=== PATIENT | female | born 2000 | race Caucasian/White ===

== ENCOUNTER 2021-04-20 15:40 | Emergency (ER) | payer OTHER ==
[2021-04-20 15:53] VITALS: BP 129/84; PULSE 115; TEMP 97.8; BMI 23.8
[2021-04-20] MEDS ORDERED: ACETAMINOPHEN 500 MG TABLET (FP) PO ONE (17:13)
[2021-04-20] MEDS ORDERED: ACETAMINOPHEN 500 MG TABLET (FP) ONE (17:25)
[2021-04-20 17:56] LABS: EPI CELLS 15 /uL (0-25.1); HCG,QUALITATIVE URINE Negative; HYALINE CASTS 1 /uL (0-3.1); URINE APPEARANCE CLOUDY; URINE BACTERIA 280 /uL (0-1359); URINE BILIRUBIN NEGATIVE (NEGATIVE); URINE COLOR YELLOW; URINE GLUCOSE (UA) NEGATIVE (NEGATIVE); URINE KETONE NEGATIVE (NEGATIVE); URINE LEUK ESTERASE NEGATIVE (NEGATIVE); URINE NITRITE NEGATIVE (NEGATIVE); URINE PROTEIN 1+ (NEGATIVE); URINE RBC 30 /uL (0-23.9); URINE WBC 5 /uL (0-25.8)
== END 2021-04-20 18:07 | disposition home or self-care (01) ==
LOC: JER 15:40 → JERFT 15:40
DX: S29.011A Strain of muscle and tendon of front wall of thorax, initial encounter (principal); Y99.9 Unspecified external cause status
CPT/HCPCS: 71046-TC-FY; 71101-TC-LT-FY; 81003; 84703; 87086; 99284-25

== ENCOUNTER 2022-05-14 08:50 | Inpatient (IN) | payer OTHER ==
[2022-05-14 10:20] LABS: BASO % 0.3 % (0-2.0); EOS % 2.5 % (0-4.5); HEMATOCRIT 35.5 % (32.4-45.2); HEMOGLOBIN 11.8 GM/dL (10.7-15.3); LYMPH % 14.5 % (8-40); MCH 28.5 pg (25.7-33.7); MCHC 33.3 g/dl (32.0-36.0); MEAN CELL VOLUME 85.6 fl (80-96); MEAN PLT VOLUME 9.2 fl (7.5-11.1); MONO % 5.7 % (3.8-10.2); PLATELET COUNT 192 10^3/uL (134-434); RBC 4.15 M/mm3 (3.60-5.2); RDW 14.7 % (11.6-15.6); WHITE BLOOD COUNT 9.6 K/mm3 (4.0-10.0)
[2022-05-14 10:34] LABS: CALCIUM 8.9 mg/dL (8.5-10.1)
[2022-05-14 10:35] LABS: BLOOD UREA NITROGEN 8.3 mg/dL (7-18)
[2022-05-14 10:38] LABS: CREATININE 0.7 mg/dL (0.55-1.3)
[2022-05-14 10:50] VITALS: BMI 32.8
[2022-05-14] MEDS: ELECTROLYTE-148 SOLN 1,000 ML IV SCH ×2 (11:00→17:04)
[2022-05-14 12:18] LABS: INR 0.97 (0.83-1.09); PROTHROMBIN TIME (PATIENT) 11.1 SEC (9.7-13.0)
[2022-05-14] MEDS ORDERED: PROMETHAZINE HCL 25 MG/1 ML VIAL IVPUSH ONE (15:35)
[2022-05-14] MEDS ORDERED: BUTORPHANOL TARTRATE 2 MG/ML VIAL IVPUSH ONE (15:35)
[2022-05-14] MEDS ORDERED: OXYTOCIN 30 UNITS in 0.9% NS 30 UNIT/500 ML INFUS.BAG IVPB ONE (15:37)
[2022-05-14] MEDS ORDERED: OXYTOCIN 30 UNITS in 0.9% NS 30 UNIT/500 ML INFUS.BAG IVPB SCH (15:45)
[2022-05-14] MEDS ORDERED: BUTORPHANOL TARTRATE 2 MG/ML VIAL ONE (16:35)
[2022-05-14] MEDS ORDERED: PROMETHAZINE HCL 25 MG/1 ML VIAL ONE (16:35)
[2022-05-14] MEDS ORDERED: FENTANYL/BUPIVACAINE/NS/PF - PCEA - 50 ML DISP.SYRIN EP ONE (19:13)
[2022-05-14] MEDS ORDERED: FENTANYL CITRATE/PF 50 MCG/ML VIAL ONE (19:23)
[2022-05-14] MEDS ORDERED: NALOXONE HCL 0.4 MG/ML VIAL IVPUSH PRN (19:47)
[2022-05-14] MEDS ORDERED: FENTANYL/BUPIVACAINE/NS/PF - PCEA - 50 ML DISP.SYRIN EP SCH (20:00)
[2022-05-14] MEDS ORDERED: ELECTROLYTE-148 SOLN 1,000 ML IV SCH (20:00)
[2022-05-14] MEDS ORDERED: OXYTOCIN 20 UNITS in 0.9% NS 20 UNIT/1,000 ML INFUS.BAG IV ONE (21:29)
[2022-05-14] MEDS ORDERED: LIDOCAINE HCL 1% PRESERVATIVE FREE - 30ML VIAL ONE (21:29)
[2022-05-14] MEDS ORDERED: BISACODYL 10 MG SUPP.RECT RC PRN (22:47)
[2022-05-14] MEDS ORDERED: WITCH HAZEL 50% (TUCKS) 40 PAD/JAR PAD TP PRN (22:47)
[2022-05-14] MEDS ORDERED: BENZOCAINE 20% 57 GM BOTTLE TP PRN (22:47)
[2022-05-14] MEDS ORDERED: ACETAMINOPHEN 325 MG TABLET (FP) PO PRN (22:47)
[2022-05-14] MEDS ORDERED: METHYLERGONOVINE MALEATE 0.2 MG/1 ML AMP IM PRN (22:47)
[2022-05-14] MEDS ORDERED: BENZOCAINE 28 GM HEMORRHOIDAL OINTMENT TP PRN (22:47)
[2022-05-14] MEDS ORDERED: oxyCODONE HCL 5 MG TABLET PO PRN (22:47)
[2022-05-14 22:53] LABS: CORD BASE EXCESS -7.8 mmol/L (0-2); CORD HCO3 19.3 mmHg (20-29); CORD HCO3 23.6 mmHg (20-29); CORD PCO2 44.8 mmHg (30-78); CORD PCO2 79.9 mmHg (30-78); CORD pH 7.089 (7.14-7.44); CORD pH 7.252 (7.14-7.44)
[2022-05-14] MEDS ORDERED: OXYTOCIN 20 UNITS in 0.9% NS 20 UNIT/1,000 ML INFUS.BAG IV SCH (23:00)
[2022-05-15] MEDS: IBUPROFEN 600 MG TABLET (FP) PO PRN ×3 (00:50→21:10)
[2022-05-15 08:44] LABS: POC NITRAZINE POS
[2022-05-15 09:45] LABS: BASO % 0.2 % (0-2.0); HEMATOCRIT 30.3 % (32.4-45.2); HEMOGLOBIN 10.1 GM/dL (10.7-15.3); LYMPH % 14.3 % (8-40); MCH 28.6 pg (25.7-33.7); MCHC 33.3 g/dl (32.0-36.0); MEAN CELL VOLUME 85.9 fl (80-96); MONO % 8.7 % (3.8-10.2); NEUT % 75.8 % (42.8-82.8); PLATELET COUNT 207 10^3/uL (134-434); RBC 3.53 M/mm3 (3.60-5.2); RDW 15.5 % (11.6-15.6); WHITE BLOOD COUNT 12.5 K/mm3 (4.0-10.0)
[2022-05-15] MEDS ORDERED: SENNOSIDES/DOCUSATE COMBO (SENNA PLUS) TABLET (UD) PO PRN (22:00)
[2022-05-16 05:15] VITALS: RESP 16; TEMP 98
[2022-05-16 08:19] VITALS: BP 122/72; PULSE 94
== END 2022-05-16 13:16 | disposition home or self-care (01) | DRG 560 ==
LOC: JDEL 08:50 → JLDR 09:30 → J3W 05-15 00:11
PROVIDERS: ADMIT Obstetrics & Gynecology; ATTEND Obstetrics & Gynecology
PROC: 10E0XZZ Delivery of Products of Conception, External Approach (ICD-10-PCS; principal; 2022-05-14)
PROC: 0W8NXZZ Division of Female Perineum, External Approach (ICD-10-PCS; 2022-05-14)
DX: O48.0 Post-term pregnancy (principal); O69.81X0 Labor and delivery complicated by cord around neck, without compression, not applicable or unspecified; Z3A.40 40 weeks gestation of pregnancy; Z37.0 Single live birth
CPT/HCPCS: 36415; 36600; 59409; 80048; 82803; 83986-QW; 85025; 85610; 85730; 86780; 86850; 86900; 86901; C9803-CS; U0003; U0005